=== PATIENT | female | born 1980 | race Caucasian/White ===

== ENCOUNTER 2020-03-27 09:10 | Outpatient (CLI) | payer BC, SELFPAY ==
--- NOTE | ~2020-03-27 | XR_ITS ---
EXAMINATION: XR wrist LT w scaphoid DATE: 03/27/2020 09:45 INDICATION: Polyarthritis. Left wrist pain. TECHNIQUE: 5 views of left wrist were obtained. COMPARISON: None. FINDINGS: Bone alignment is normal. No fracture. Joint spaces are well maintained. IMPRESSION: 1. Normal left wrist. Reviewed, dictated and finalized at location B. HERMAL PLANT MANAGER IMPRESSION: 1. Normal left wrist.
--- NOTE | ~2020-03-27 | XR_ITS ---
XR hip BI wo pelvis DATE: 03/27/2020 09:45 INDICATION: Bilateral hip pain TECHNIQUE: AP and lateral views of each hip COMPARISON: None FINDINGS: No fracture, dislocation, avascular necrosis or bone destruction of either hip is evident. There is mild bilateral hip osteoarthritis. The pubic symphysis and sacroiliac joints are intact. No pelvic fracture or bone destruction is detec aki. IMPRESSION: Mild bilateral hip osteoarthritis Reviewed, dictated and finalized at location A. GER NET
--- NOTE | ~2020-03-27 | XR_ITS ---
EXAMINATION: XR knee RT min 4V DATE: 03/27/2020 09:45 INDICATION: Polyarthralgia. Right knee pain. TECHNIQUE: 4 views of right knee were obtained. COMPARISON: None. FINDINGS: Bone alignment is normal. No fracture. There is mild tricompartmental osteoarthritis charac terized by tiny marginal osteophytes. No knee joint effusion. IMPRESSION: 1. Mild right knee osteoarthritis. Reviewed, dictated and finalized at location B. R ANALYST
--- NOTE | ~2020-03-27 | XR_ITS ---
XR cervical spine 4-5V DATE: 03/27/2020 09:45 INDICATION: Tension type headache TECHNIQUE: Lateral, swimmer's, AP and open-mouth views COMPARISON: 09/06/2011 cervical spine 04/21/2012 magnetic resonance imaging cervical spine FINDINGS: There is straightening of the cervical spine. C1 and C2 are normally aligned and the odonto id process is intact. No fracture or dislocation or locked facet or prevertebral soft tissue swelling . Cervical interspaces appear relatively well preserved. IMPRESSION: Straightening Reviewed, dictated and finalized at location A. STRIAL SAFETY AND HEALTH TECHNICIAN IMPRESSION: Straightening
--- NOTE | ~2020-03-27 | XR_ITS ---
EXAMINATION: XR knee LT min 4V DATE: 03/27/2020 09:45 INDICATION: Polyarthritis. Left knee pain. TECHNIQUE: 4 views of left knee were obtained. COMPARISON: None. FINDINGS: Bone alignment is normal. No fracture. There is mild osteoarthritis of patellofemoral and l ateral compartments characterized by tiny marginal osteophytes. No knee joint effusion. IMPRESSION: 1. Mild left knee osteoarthritis. Reviewed, dictated and finalized at location B. F ASSISTANT
--- NOTE | ~2020-03-27 | XR_ITS ---
EXAMINATION: XR wrist RT w scaphoid DATE: 03/27/2020 09:45 INDICATION: Polyarthritis. Right wrist pain. TECHNIQUE: 5 views of right wrist were obtained. COMPARISON: None. FINDINGS: Bone alignment is normal. No fracture. There is mild osteoarthritis of first metacarpophala ngeal joint. IMPRESSION: 1. Mild osteoarthritis of first metacarpophalangeal joint. Reviewed, dictated and finalized at location B. NICAL SUPPORT ASSOCIATE
== END 2020-03-27 09:11 | disposition home or self-care (01) ==
PROVIDERS: PCP Internal Medicine; Visit Provider Internal Medicine
DX: G44.209 Tension-type headache, unspecified, not intractable (principal); M16.0 Bilateral primary osteoarthritis of hip; M19.031 Primary osteoarthritis, right wrist; M17.0 Bilateral primary osteoarthritis of knee
CPT/HCPCS: 72050; 73110; 73521; 73564

== ENCOUNTER 2022-06-08 10:43 | Outpatient (CLI) | payer BC, SELFPAY ==
--- NOTE | ~2022-06-08 | XR_ITS ---
Cervical Spine: AP, lateral, open-mouth views Clinical History: Pain Findings: The normal lordotic curve is maintained. The vertebral bodies and posterior elements appea r intact. The intervertebral disc spaces are well maintained. Pre-vertebral soft tissues are unremar kable. Impression: No significant abnormality is seen. Reviewed, dictated and finalized at [facility]. CE LIEUTENANT Impression: No significant abnormality is seen.
--- NOTE | ~2022-06-08 | XR_ITS ---
Right wrist Technique: PA, oblique, lateral, and ulnar deviation views were obtained. Clinical History: Arthritis Findings: No acute fracture or dislocation is seen. Osseous alignment is anatomic. Joint spaces are p reserved. Soft tissues are unremarkable. Impression: Unremarkable right wrist radiographs. Reviewed, dictated and finalized at location . GATION FOREMAN Impression: Unremarkable right wrist radiographs.
--- NOTE | ~2022-06-08 | XR_ITS ---
Left wrist Technique: PA, oblique, lateral, and ulnar deviation views were obtained. Clinical History: Arthritis Findings: No acute fracture or dislocation is seen. Osseous alignment is anatomic. Joint spaces are p reserved. Soft tissues are unremarkable. Impression: Unremarkable left wrist radiographs. Reviewed, dictated and finalized at location . ER SHANK Impression: Unremarkable left wrist radiographs.
== END 2022-06-08 10:44 | disposition home or self-care (01) ==
LOC: ANHIMG 10:50
PROVIDERS: PCP Internal Medicine; Visit Provider Internal Medicine
DX: M54.2 Cervicalgia (principal); M13.0 Polyarthritis, unspecified; M25.539 Pain in unspecified wrist
CPT/HCPCS: 72040; 73110

== ENCOUNTER 2025-01-08 18:16 | Emergency (ER) | payer OTHER, SELFPAY ==
[2025-01-08 18:24] VITALS: BP 120/81; PULSE 74; RESP 16; TEMP 36.6; O2SAT 99
--- NOTE | 2025-01-08 19:37 | ED.GENADULT ---
HPI - General Adult General Chief complaint: Extremity Injury, Upper Stated complaint: R Shoulder Pain Source: patient Mode of arrival: ambulatory Limitations: no limitations History of Present Illness HPI narrative: Patient presents for evaluation of pain in the right scapula. Symptom onset today. She cannot identify any precipitating cause or injury. No history of similar symptoms. She states her pain is stabbing, 9/10 in severity. She denies any chest pain, shortness of breath or cough. She has a prescription for meloxicam but did not try taking it. She also has baclofen and gabapentin at home. She does not feel any testing is necessary. She came in to [facility] to see if we could get her pain under better control. Certain movements seem to make her symptoms worse. Related Data Home Medications ?Medication ?Instructions ?Recorded ?Confirmed ?Last Taken ?Type cetirizine 10 mg tablet (Zyrtec) 10 mg PO DAILY 05/14/19 12/20/24 Unknown History cromolyn 100 mg/5 mL oral 200 mg PO QID 05/14/19 12/20/24 Unknown History concentrate doxepin 10 mg capsule 10 mg PO DAILY 05/14/19 12/20/24 Unknown History epinephrine 0.3 mg/0.3 mL 0.3 mg IM ONCE 05/14/19 12/20/24 Unknown History injection, auto-injector (EpiPen 2-Gaudencio) fluticasone propionate 50 2 spray intranasal DAILY 05/14/19 12/20/24 Unknown History mcg/actuation nasal spray,suspension doxepin 25 mg capsule mg PO .at night 09/06/19 12/20/24 Unknown History aspirin 325 mg tablet 325 mg PO BID 02/28/20 12/20/24 Unknown History vitamin B complex 1 tablet PO DAILY 12/09/20 12/20/24 Unknown History mecobalamin (vitamin B12) 1,000 1,000 mcg sublingual DAILY 11/12/21 12/20/24 Unknown History mcg disintegrating tablet,sublingual riboflavin (vitamin B2) 100 mg 100 mg PO DAILY 11/12/21 12/20/24 Unknown History tablet cholecalciferol (vitamin D3) 50 4,000 unit PO DAILY 11/01/22 12/20/24 Unknown History mcg (2,000 unit) capsule avapritinib 25 mg tablet (Ayvakit) 25 mg PO DAILY 05/10/23 12/20/24 Unknown History zafirlukast 20 mg tablet 20 mg PO BID 05/10/23 12/20/24 Unknown History budesonide-formoterol HFA 160 1 inh inhalation ONCE 09/21/23 12/20/24 Unknown History mcg-4.5 mcg/actuation aerosol inhaler (Symbicort) ketotifen .Route 12/20/24 12/20/24 Unknown History retatrutide IM 12/20/24 12/20/24 Unknown History Allergies Allergy/AdvReac Type Severity Reaction Status Date / Time acetaminophen Allergy Unknown Verified 01/08/25 18:30 codeine Allergy Unknown Verified 01/08/25 18:30 naproxen Allergy Unknown Verified 01/08/25 18:30 Penicillins Allergy Unknown Verified 01/08/25 18:30 tramadol Allergy rash Verified 01/08/25 18:30 cyclobenzaprine AdvReac Nausea Verified 01/08/25 18:30 Review of Systems Review of Systems: CONSTITUTIONAL: Denies fever, chills, or sweats. EYES: Denies visual changes, redness, or discharge. ENT: Denies rhinorrhea, congestion, sore throat, or otalgia. CARDIOVASCULAR: Denies chest pain, palpitations, or edema. RESPIRATORY: Denies cough or dyspnea. GASTROINTESTINAL: Denies abdominal pain, nausea, vomiting, or diarrhea. GENITOURINARY: Denies dysuria or hematuria. SKIN: Denies rash or itching. MUSCULOSKELETAL: Reports pain in the right scapular region NEUROLOGIC: Denies headache, numbness, dizziness, or weakness. PSYCHIATRIC: Denies anxiety or depression. 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, extranodal and solid organ sites Otitis Eustachian tube dysfunction Ear pain Metabolic syndrome Need for COVID-19 vaccine Left tennis elbow Mixed hyperlipidemia Hip pain, bilateral Encounter for routine adult health examination with abnormal findings Peripheral neuropathy Joint pain Cervicalgia Left ear pain Follow up Right shoulder pain Encounter for routine adult health examination without abnormal findings Hypersomnolence Body mass index (BMI) 40.0-44.9, adult Vitamin D deficiency PCOS (polycystic ovarian syndrome) Leukocytosis Benign essential hypertension Encounter for preventive health examination On predatory animal exterminator drug therapy Elevated homocysteine Mastocytosis Family History Family History Father Asthma Family history of diabetes mellitus in first degree relative Diabetes mellitus Other Hypertension Social History Social History Smoking status: Never smoker Alcohol intake: current Lack of Transportation: No Lack of Food: Never True Current Housing: I Have Housing Concerned About Future Housing: No Difficulty Paying Gas/Electric Bills: No Difficulty Paying for Meds: No Currently Unemployed: No Education: Trade/Vocational Certificate Difficulty w/ Childcare or Family Care: No Living arrangements: with family Occupation/Education: occupation Gender identity (if verbalized by the patient): Female Exam Narrative: GENERAL: Well-appearing, well-nourished, and in no acute distress. HEAD: Normocephalic, atraumatic. EYES: PERRLA and EOMI. ENT: Nares clear, no rhinorrhea or epistaxis. Mucous membranes moist. Oropharynx without tonsillar hypertrophy exudate or other lesions. Bilateral TMs pearly castellon nonbulging NECK: Supple. No adenopathy or masses. No carotid bruits or JVD CHEST: Clear to auscultation. No respiratory distress. No wheezes rales or rhonchi HEART: Regular rate and rhythm. No murmur heard. Normal peripheral pulses. ABDOMEN: Soft, nontender, nondistended, normal active bowel sounds. EXTREMITIES: Normal range of motion. No edema. SKIN: Warm, dry, no rash. NEURO: No focal deficits. Alert and oriented x3. PSYCH: Normal mood and affect. Course Course Emergency Course: This is a 44-year-old female who presented for evaluation of pain in the right scapula. She declined imaging. She was open to an injection of Toradol, which she was given. Her pain improved. Will discharge with Medrol Dosepak. She has tolerated well in the past. She ready has NSAIDs, gabapentin and baclofen at home. She should follow-up with her primary care provider go to the ER for worsening symptoms. Patient in agreement with plan of care Level of Care: Express Care Visit Vital Signs Vital signs: Vital Signs Temperature 36.6 C 01/08/25 18:24 Pulse Rate 74 01/08/25 18:24 Respiratory Rate 16 01/08/25 18:24 Blood Pressure 120/81 01/08/25 18:24 Pulse Oximetry 99 01/08/25 18:24 Temperature 36.6 C 01/08/25 18:24 Pulse Rate 74 01/08/25 18:24 Respiratory Rate 16 01/08/25 18:24 Blood Pressure 120/81 01/08/25 18:24 Pulse Oximetry 99 01/08/25 18:24 Medical Decision Making Vital Signs Vital Signs: Vital Signs Temperature 36.6 C 01/08/25 18:24 Pulse Rate 74 01/08/25 18:24 Respiratory Rate 16 01/08/25 18:24 Blood Pressure 120/81 01/08/25 18:24 Pulse Oximetry 99 01/08/25 18:24 Temperature 36.6 C 01/08/25 18:24 Pulse Rate 74 01/08/25 18:24 Respiratory Rate 16 01/08/25 18:24 Blood Pressure 120/81 01/08/25 18:24 Pulse Oximetry 99 01/08/25 18:24 Discharge Plan Discharge Clinical Impression: Myalgia Patient Disposition: Home Condition: Stable Instructions: Antibiotic Form, Musculoskeletal Pain (ED) Patient Language: Cambodian Prescriptions: New methylprednisolone [Medrol (Gaudencio)] 4 mg tablets,dose pack See Rx Instructions .ROUTE .COMPLEX Qty: 21 0RF Rx Instructions: for 6 days No Action doxepin 25 mg capsule PO .at night vitamin B complex Tablet 1 tablet PO DAILY triamcinolone acetonide 0.5 % cream 1 applic topical BID Qty: 60 3RF meloxicam 7.5 mg tablet 7.5 mg PO DAILY PRN (Reason: muscle pain) Qty: 90 1RF retatrutide IM Rx Instructions: Pt injects 60 units once weekly. ketotifen .Route Rx Instructions: Take 3 tablets by oral route daily potassium chloride 20 mEq tablet extended release See Rx Instructions .ROUTE .COMPLEX Qty: 60 3RF Dose Instruction: TAKE 1 TABLET BY MOUTH DAILY Rx Instructions: TAKE 1 TABLET BY MOUTH TWICE DAILY doxepin 10 mg capsule 10 mg PO DAILY cetirizine [Zyrtec] 10 mg tablet 10 mg PO DAILY fluticasone propionate 50 mcg/actuation spray,suspension 2 spray NASAL DAILY Rx Instructions: administer into each nostril epinephrine [EpiPen 2-Gaudencio] 0.3 mg/0.3 mL auto-injector 0.3 mg IM ONCE Rx Instructions: as a single dose cromolyn 100 mg/5 mL concentrate 200 mg PO QID aspirin 325 mg tablet 325 mg PO BID albuterol sulfate 90 mcg/actuation HFA aerosol inhaler 1 puff INHALATION Q4H PRN (Reason: shortness of breath or wheezing) Qty: 6.7 1RF zafirlukast 20 mg tablet 20 mg PO BID Rx Instructions: must be taken on empty stomach, at least 1 hr before or 2 hrs after a meal/food Ayvakit 25 mg tablet 25 mg PO DAILY Rx Instructions: must be taken on empty stomach, at least 1 hr before or 2-3 hrs after meal/food azelastine 205.5 mcg (0.15 %) spray,non-aerosol 2 spray intranasal DAILY Qty: 30 0RF Rx Instructions: administer into each nostril budesonide-formoterol [Symbicort] 160-4.5 mcg/actuation HFA aerosol inhaler 1 inh inhalation ONCE mecobalamin (vitamin B12) 1,000 mcg tablet,disintegrating 1,000 mcg sublingual DAILY Rx Instructions: place tablet under tongue and allow to dissolve for at least30 secs before swallowing riboflavin (vitamin B2) 100 mg tablet 100 mg PO DAILY cholecalciferol (vitamin D3) 50 mcg (2,000 unit) capsule 4,000 unit PO DAILY albuterol sulfate 0.63 mg/3 mL solution for nebulization 0.63 mg INHALATION Q4-6H PRN (Reason: shortness of breath or wheezing) Qty: 90 0RF citalopram 20 mg tablet See Rx Instructions .ROUTE .COMPLEX Qty: 90 3RF Dose Instruction: TAKE 1 TABLET BY MOUTH DAILY Rx Instructions: TAKE 1 TABLET BY MOUTH DAILY rosuvastatin 10 mg tablet 10 mg .ROUTE .COMPLEX Qty: 90 1RF Rx Instructions: 10 mg; chlorthalidone 25 mg tablet See Rx Instructions .ROUTE .COMPLEX Qty: 90 1RF Dose Instruction: TAKE 1 TABLET BY MOUTH DAILY Rx Instructions: TAKE 1 TABLET BY MOUTH DAILY losartan 50 mg tablet See Rx Instructions .ROUTE .COMPLEX Qty: 90 1RF Dose Instruction: TAKE 1 TABLET BY MOUTH DAILY Rx Instructions: TAKE 1 TABLET BY MOUTH DAILY venlafaxine 75 mg capsule,extended release 24hr See Rx Instructions .ROUTE .COMPLEX Qty: 90 0RF Dose Instruction: TAKE 1 CAPSULE BY MOUTH DAILY Rx Instructions: TAKE 1 CAPSULE BY MOUTH DAILY gabapentin 300 mg capsule See Rx Instructions .ROUTE .COMPLEX Qty: 90 1RF Dose Instruction: TAKE 1 CAPSULE BY MOUTH THREE TIMES DAILY Rx Instructions: TAKE 1 CAPSULE BY MOUTH THREE TIMES DAILY baclofen 10 mg tablet See Rx Instructions .ROUTE .COMPLEX Qty: 30 0RF Dose Instruction: TAKE 1/2 TABLET BY MOUTH THREE TIMES DAILY Rx Instructions: TAKE 1/2 TABLET BY MOUTH THREE TIMES DAILY Follow-up/Referrals: Tani Cain MD [Physician, Family Practice] Time of Disposition: 20:05
[2025-01-08] MEDS: KETOROLAC (*BKC) 60 MG/2 ML VIAL IM (19:42)
== END 2025-01-08 20:13 | disposition home or self-care (01) ==
PROVIDERS: Emergency Provider Nurse Practitioner
DX: M25.511 Pain in right shoulder (principal); J45.909 Unspecified asthma, uncomplicated; E78.2 Mixed hyperlipidemia; E55.9 Vitamin D deficiency, unspecified; E28.2 Polycystic ovarian syndrome; I10 Essential (primary) hypertension; F41.9 Anxiety disorder, unspecified; F32.A Depression, unspecified; E88.810 Metabolic syndrome; Z85.79 Personal history of other malignant neoplasms of lymphoid, hematopoietic and related tissues
CPT/HCPCS: 96372; 99213; G0463; J1885